=== PATIENT | female | born 1955 | race Caucasian/White ===

== ENCOUNTER 2016-11-22 07:24 | Day surgery (SDC) | payer MEDICAID ==
[2016-11-22] MEDS ORDERED: Sodium Chloride 0.9% 10 ML Syringe FLUSH PRN (08:00)
[2016-11-22] MEDS ORDERED: Lactated Ringers 1,000 ML IV SCH (08:00)
[2016-11-22] MEDS ORDERED: Propofol 200 MG/20 ML SDV IV ONE (09:00)
--- NOTE | 2016-11-22 09:22 | PCM.OPNOTE ---
- General Post-Op/Procedure Note Date of Surgery/Procedure: 11/22/16 Operative Procedure(s): c scope Findings: normal colon Pre Op Diagnosis: colon cancer screening Post-Op Diagnosis: nl colon Anesthesia Technique: MAC Primary Surgeon: Ruddy London Anesthesia Provider: Amor Simon Complications: None Condition: Good Free Text/Narrative:: see dictation
[2016-11-22 10:01] VITALS: BP 114/67
--- NOTE | 2016-11-22 13:13 | OR ---
DATE OF OPERATION: 11/22/2016 SURGEON: Ruddy London MD PROCEDURE PERFORMED: Colonoscopy. PREOPERATIVE DIAGNOSIS: Colon cancer screening. POSTOPERATIVE DIAGNOSIS: Normal colon. INDICATIONS FOR PROCEDURE: This is a 61-year-old white female, who presents for screening colonoscopy. She was offered and accepted the same. DESCRIPTION OF OPERATION: After an excellent IV sedation was administered, digital rectal exam was performed. No marked abnormality was noted. The flexible colonoscope was inserted and advanced to the cecum without difficulty. The prep was excellent. The following findings were noted. Ascending colon, unremarkable. Transverse colon, unremarkable. Descending colon, unremarkable. Sigmoid and rectum unremarkable. Colon was deflated, scope was removed. The patient tolerated the procedure well and was taken to recovery. Repeat colonoscopy in 10 years. /[id number] /MODL
== END 2016-11-22 10:29 | disposition home or self-care (01) ==
LOC: FB.SDS 07:24
PROVIDERS: ATTEND Surgery
DX: Z12.11 Encounter for screening for malignant neoplasm of colon (principal); E11.9 Type 2 diabetes mellitus without complications; Z88.0 Allergy status to penicillin; Z91.013 Allergy to seafood; Z79.899 Other long term (current) drug therapy; Z90.49 Acquired absence of other specified parts of digestive tract; Z98.890 Other specified postprocedural states; Z90.710 Acquired absence of both cervix and uterus; Z87.891 Personal history of nicotine dependence
CPT/HCPCS: 45378; J2704; J7120